=== PATIENT | female | born 1990 | race Caucasian/White ===

== ENCOUNTER 2023-06-14 11:31 | Outpatient (AMB) | payer BC, SELFPAY ==
--- NOTE | 2023-06-14 11:33 | MHC.OFFWIV ---
Intake Vital Signs 06/14/23 11:37 Height 5 ft 7 in Weight 146 lb BMI 22.9 BP 116/76 Blood Pressure Location Lt brachial Position Sitting Pulse 97 Pulse Source Pulse Oximeter Temp 98.4 F Temp Source Temporal Artery Scan Pulse Oximetry (%) 97 Oxygen Delivery Method Room Air Intake Visit Reasons: EP sore throat chills headache Intake Note: pt is here today for sore throat chills headache started yesterday Patient Tobacco Use Status: Never used Tobacco Is last menstrual period known: Yes Patient : No Allergies No Known Allergies Allergy (Verified 06/14/23 11:33) Medication List - Last Reconciled 06/14/23 by SEAN Tran amoxicillin 875 mg PO BID 10 days bupropion HCl 300 mg PO DAILY Do you need a note to return to daycare/school/sports/work: Yes HPI HPI Comments History of Present Illness Details 33-year-old female presents today complaining of sore throat fever myalgias mild congestion x2 days. Patient works as a administrative support technician in the hospital [employer] Social History Patient Tobacco Use Status: Never used Tobacco Review of Systems Const Reports body aches, Reports chills, Reports fatigue, Reports fever(s) and Reports headache(s) ENT Reports headache(s), Reports nasal congestion, Reports nasal discharge, Reports sinus pain, Reports sinus pressure and Reports sore throat Resp Reports chest congestion and Reports cough GI Reports nausea Musc Reports myalgias Neuro Reports headache(s) Endo Reports fatigue Physical Exam Vital Signs: Last Vital Signs Temp 98.4 F 06/14/23 11:37 Pulse 97 06/14/23 11:37 BP 116/76 06/14/23 11:37 Pulse Ox 97 06/14/23 11:37 Oxygen Delivery Method Room Air 06/14/23 11:37 BMI result Body Mass Index 22.9 Const General: acute distress mild HEENT Head: Yes normal to inspection, Yes normocephalic and Yes atraumatic Ears: hearing grossly normal bilaterally, external ears normal, TM's normal bilaterally, TM normal on the right, TM normal on the left and EAC's normal General nose exam: Normal external nose present Face and sinus: Yes normal facial exam and Yes sinuses nontender Mouth: Abnormal oral and palatal mucosa present erythematous Throat: Yes posterior oropharynx abnormal (erythema) Eyes General: appearance normal, both eyes and all related structures Resp Effort & Inspection: normal respiratory effort Auscultation: clear to auscultation bilaterally Cardio Rate: regular rate Rhythm: regular rhythm Results AMB Rapid Strep AMB Rapid Strep Negative Last Edit by Amara Reyna CMA on 06/14/23 11:53 Results Reviewed Results Reviewed: Laboratory Last Values Strep Scn Rapid Clinic Negative 06/14/23 11:53 Assessment & Plan Assessment & Plan (1) Sore throat: Code(s): J02.9 - Acute pharyngitis, unspecified Plan: The patient had a viral screening today for COVID flu RSV. Her rapid strep was negative. She was given a note to stay home and rest for the next 5 days. We will call tomorrow with the results of her viral culture. She will consider Tamiflu or Paxlovid depending on the results. Plan see plan Orders: Orders AMB Rapid Strep Screen Today Z13.9 - Encounter for screening, unspecified SARS-CoV2/FLU/RSV Today R09.89 - Other specified symptoms and signs involving the circulatory and respiratory systems Medications: New doxycycline hyclate 100 mg PO BID 10 days PRN 20 caps 0RF exudative pharyngitis Coding Level of Care Code Est Pt Level 3 (99961) Diagnoses Sore throat J02.9
[2023-06-14 11:37] VITALS: BP 116/76; PULSE 97; TEMP 36.9; O2SAT 97; BMI 22.9
== END 2023-06-14 12:12 | disposition home or self-care (01) ==
PROVIDERS: PCP Nurse Practitioner Family; Visit Provider Physician Assistant Medical
DX: J02.9 Acute pharyngitis, unspecified (principal)
CPT/HCPCS: 87880; 99213

== ENCOUNTER 2023-06-14 11:53 | Outpatient (REF) | payer BC, SELFPAY ==
[2023-06-15 11:32] LABS: Influenza A PCR NEGATIVE (Negative); Influenza B PCR NEGATIVE (Negative); Resp Syncy Virus RNA Qual PCR NEGATIVE (Negative); SARS COV2 PCR INHOUSE NEGATIVE (Negative)
== END 2023-06-14 11:54 | disposition home or self-care (01) ==
LOC: HO.HMGCLNP 11:53
PROVIDERS: Visit Provider Physician Assistant Medical
DX: Z11.52 Encounter for screening for COVID-19 (principal); Z20.822 Contact with and (suspected) exposure to COVID-19; R09.89 Other specified symptoms and signs involving the circulatory and respiratory systems
CPT/HCPCS: 0241U